=== PATIENT | male | born 1935 | race Caucasian/White ===

== ENCOUNTER → 2022-03-03 09:03 | Outpatient (CLI) | payer MEDICARE, BC, SELFPAY ==
--- NOTE | 2022-03-03 | DI.RAD.S_ITS ---
PROCEDURE: XR LUMBAR SPINE 2-3V INDICATIONS: Lumbago with sciatica, left side TECHNIQUE: 3 views of the lumbar spine were acquired. COMPARISON: None. FINDINGS: Bones: 5 [id number] vertebrae are present. There is 4 mm anterolisthesis of L3 on L4. Loss of disc height and degenerative endplate changes throughout lumbar spine is seen. No vertebral body compression fractures. No suspicious bony lesions. Soft tissues: Overlying bowel gas pattern is normal. No suspicious soft tissue calcifications. IMPRESSION: Degenerative disc disease throughout lumbar spine. Grade 1 anterolisthesis of L3 on L4. No acute compression fracture. Dictated by: Jamarcus Hickey M.D. on 03/03/2022 at 10:10 Approved by: Jamarcus Hickey M.D. on 03/03/2022 at 10:11
== END ==
PROVIDERS: PCP Family Medicine; Referring Provider Family Medicine; Visit Provider Family Medicine
DX: M51.16 Intervertebral disc disorders with radiculopathy, lumbar region (principal); M43.16 Spondylolisthesis, lumbar region
CPT/HCPCS: 72100

== ENCOUNTER 2024-09-05 19:43 | Emergency (ER) | payer MEDICARE, BC, SELFPAY ==
[2024-09-05 20:03] VITALS: BP 136/67; PULSE 83; RESP 16; TEMP 36.4; O2SAT 95; BMI 24.7
--- NOTE | 2024-09-05 21:23 | DI.CT.S_ITS ---
PROCEDURE: CT HEAD/BRAIN WO CON INDICATIONS: fall, hit head, no thinners TECHNIQUE: Noncontrast 4.5 mm thick angled axial sections acquired from the foramen magnum to the vertex, with coronal and sagittal reformats. For radiation dose reduction, the following was used: automated exposure control, adjustment of mA and/or kV according to patient size. COMPARISON: None. FINDINGS: Image quality: Diagnostic. CSF spaces: Basal cisterns are patent. No extra-axial fluid collections. The ventricles are symmetric in size and shape. Brain: No intracranial bleeds or masses. There is cerebral volume loss for age, with resultant ventricular and sulcal prominence. There are periventricular and deep white matter chronic small vessel ischemic changes. There is intracranial internal carotid artery atherosclerosis. Skull and face: Calvarium and visualized facial bones appear intact, without suspicious lesions. Sinuses: Visualized sinuses and mastoids are clear. IMPRESSION: No acute intracranial pathology. Approved by: Edyta Chung M.D.,Ph.D. on 09/06/2024 at 0:19
--- NOTE | 2024-09-05 21:23 | DI.CT.S_ITS ---
PROCEDURE: CT CERVICAL SPINE WO CON INDICATIONS: fall, hit head, no thinners TECHNIQUE: Noncontrast 3 mm thick sections acquired from the skull base to the T4 level. Sagittal and coronal reformats were then constructed. For radiation dose reduction, the following was used: automated exposure control, adjustment of mA and/or kV according to patient size. COMPARISON: None. FINDINGS: Image quality: Diagnostic Bones: No acute fractures or dislocations. Visualized superior ribs are intact. Straightening of the normal cervical lordosis. Multilevel degenerative changes. Soft tissues: Prevertebral soft tissues are normal in thickness. No paravertebral hematomas. No apical pneumothoraces. IMPRESSION: No acute displaced fracture or traumatic subluxation. Approved by: Edyta Chung M.D.,Ph.D. on 09/06/2024 at 0:16
--- NOTE | 2024-09-06 01:04 | ED.HEATRA ---
HPI - Head Injury General Chief complaint: Head Injury Stated complaint: head injury Time Seen by Provider: 09/06/24 00:39 Source: patient Mode of arrival: Ambulatory History of Present Illness HPI Narrative: 89-year-old male history of hypothyroidism, dyslipidemia, BPH does take an aspirin daily presents with complaint of mechanical fall. Patient was doing a puzzle sat backwards and missed the chair fell backwards hitting his head on the corner of the wall of the top of his head. States no loss of consciousness, denies any neck pain. Denies any other injuries. No chest pain or shortness of breath. No nausea or vomiting. No dizziness. Has not had any numbness tingling weakness or other issues. Does have a laceration on his scalp. He is unsure of his tetanus status but sees Dr. Luna here locally at the hospital. 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 Related Data Home Medications Medication Instructions Recorded Confirmed ascorbic acid (vitamin C) 500 mg mg PO 11/01/20 11/05/20 capsule aspirin 325 mg tablet 325 mg PO DAILY 11/01/20 11/05/20 carboxymethylcellulose sodium 0.5 drp ophthalmic (eye) 11/01/20 11/05/20 % eye drops (Refresh Tears) cholecalciferol (vitamin D3) 50 50 mcg PO DAILY 11/01/20 11/05/20 mcg (2,000 unit) capsule coenzyme Q10 300 mg capsule 300 mg PO DAILY 11/01/20 11/05/20 glucosamine-chondroitin 750 mg-600 tab PO 11/01/20 11/05/20 mg tablet levothyroxine 50 mcg tablet 50 mcg PO DAILY 11/01/20 11/05/20 (Synthroid) multivitamin 1 tab PO DAILY 11/01/20 11/05/20 omega-3 fatty acids 1,000 mg 1,000 mg PO DAILY 11/01/20 11/05/20 capsule (Fish Oil Concentrate) pravastatin 40 mg tablet 40 mg PO DAILY 11/01/20 11/05/20 tamsulosin 0.4 mg capsule 0.8 mg PO DAILY 11/01/20 11/05/20 Previous Rx's Medication Instructions Recorded finasteride 5 mg tablet See Rx Instructions .Route 11/14/21 .COMPLEX #90 tabs Allergies Allergy/AdvReac Type Severity Reaction Status Date / Time pistachio nut Allergy Verified 09/05/24 20:03 Review of Systems Review of Systems ROS Unobtainable: All systems reviewed & are unremarkable except as noted in HPI and below Patient History Medical History BPH w urinary obs/LUTS Hx of migraines Surgical History History of vasectomy History of hernia repair History of back surgery Family History Father Hypertension Mother Migraines Social History marital status: number of children: 2 occupational status: previously employed Smoking Status: Never smoker alcohol intake: current caffeine: Yes Smoking Status: Never smoker Exam Narrative Exam Narrative: GEN: Patient appears in mild distress. HEAD: Patient has a curvilinear laceration of the left parietal scalp proximally 5 cm in length, no raccoon/Becker sign. NECK: Nontender, painless range of motion, trachea midline [Negative/positive] Nexus criteria, no midline line tenderness, distracting injury, altered mental status, neuro deficit, recent EtOH. EYES: PERRLA, EOMI ENT: External inspection normal, trachea is midline, TM's are normal no hemotypanum, Nares are clear, no septal hematoma, no dental or oral injury, airway is normal and with normal occlusion, No bony tenderness RESP: Chest is nontender and has symmetric movement, no ecchymosis, breath sounds are normal no crackles, wheezes or rales CVS: Heart sounds are normal, no murmur noted, No JVD. ABG/GI: Nontender, soft, normal bowel sounds, no distention, no organomegaly NEURO: Oriented AOx3, neuro is grossly intact, sensation and motor is normal all 4 extremities moving, cranial nerves II through XII are intact, GCS is 15 PSYCH: Normal mood and affect SKIN: Intact, warm and dry, no crepitus and without decubitus BACK: No CVA tenderness, no vertebral tenderness, no step-off's, no crepitus EXT: Atraumatic, hips are nontender, no pedal edema, normal color and temperature, normal range of motion of extremities with normal tendon exam, 2+ pulses in all four extremities Initial Vital Signs Initial Vital Signs: Vital Signs Temperature 97.5 F L 09/05/24 20:03 Pulse Rate 83 09/05/24 20:03 Respiratory Rate 16 09/05/24 20:03 Blood Pressure 136/67 09/05/24 20:03 Pulse Oximetry 95 09/05/24 20:03 Oxygen Delivery Method Room Air 09/05/24 20:03 Procedures Laceration Repair Laceration 1: Site: scalp Side (If applicable): left Size (cm): 5 Description: linear (Curvilinear) and flap Depth: simple, single layer Local Anesthetic: lidocaine 2% Amount of anesthesia used (mL): 6 Pre-repair: wound explored, irrigated extensively and deep structures intact Skin layer closed with: waqas (#8) Course Orders Ordered: Discontinued Medications Diphtheria/Tetanus/Acell Pertussis (Tet,Diph,Pertuss(Acell),Vac/Pf 0.5 Ml Syringe) 0.5 ml IM .ONCE ONE Stop: 09/05/24 21:27 Last Admin: 09/06/24 01:48 Dose: 0.5 ml Documented By: ROLA Lidocaine HCl (Lidocaine 2% Inj Sdv 5ml) 10 ml INJ NOW ONE Stop: 09/06/24 01:16 Last Admin: 09/06/24 01:49 Dose: 10 ml Documented By: ROLA Vital Signs Vital signs: Vital Signs - 8 hr 09/06/24 02:02 Pulse Rate 65 Respiratory Rate 20 Blood Pressure 165/86 H Pulse Oximetry 96 Oxygen Delivery Method Room Air MDM - Head Injury MDM Narrative Medical decision making narrative: 89-year-old male with complaint of fall with head laceration reports mechanical ground level fall no loss of consciousness no anticoagulation but patient is 89 years old. Has a 5 cm laceration. Tetanus was updated. Head CT shows cerebral volume loss for age with the results ventricular and sulcal prominence periventricular and deep white matter chronic small vessel ischemic changes there was intracranial internal carotid artery atherosclerosis. No acute intracranial pathology. Cervical spine CT shows no acute displaced fracture or traumatic subluxation straightening of normal cervical lordosis multilevel degenerative changes. Discussed with patient sutures versus waqas patient is okay with waqas we will numb with lidocaine. Patient had staple repair with 8. Waqas. Patient tolerated well discussed return precautions. All questions answered. Discharge Plan Departure Patient Disposition: Home Clinical Impression: Laceration of scalp, Fall Instructions: DI for Laceration Repair -- [place], Closed Head Injury Activity Restrictions/Additional Instructions: Follow up in 7-10 days with primary care, urgent care of the emergency department for removal of your waqas. I would recommend calling your primary care physician to set up appointment for removal. You can take acetaminophen up to a 1000 mg every 6 hours as needed for headaches or pain. Wound Care: Keep wound(s) clean and dry. Wash daily with soap and water only. Do not use over the counter products (alcohol or peroxide)on the wounds unless instructed by a physician. If wound condition worsens (increased/expanding redness, developing fluid blisters, or worsening pain), either contact your doctor for an urgent re-assessment , or return to the Emergency Department. Return to the Emergency Department for any new or worsening symptoms. Return if fever greater than 100.4 Fahrenheit, increased swelling, increasing pain or worsening symptoms such as increased discharge or spreading redness. Please return for severe headaches, new neck or back pain, dizziness, lightheadedness or passing out, persistent vomiting, new chest pain or shortness of breath, numbness tingling or weakness changes to mentation or other new or concerning changes. Prescriptions: No Action pravastatin 40 mg tablet 40 mg PO DAILY levothyroxine [Synthroid] 50 mcg tablet 50 mcg PO DAILY tamsulosin 0.4 mg capsule 0.8 mg PO DAILY ascorbic acid (vitamin C) 500 mg capsule PO cholecalciferol (vitamin D3) 50 mcg (2,000 unit) capsule 50 mcg PO DAILY coenzyme Q10 300 mg capsule 300 mg PO DAILY multivitamin Tablet 1 tab PO DAILY omega-3 fatty acids [Fish Oil Concentrate] 1,000 mg capsule 1,000 mg PO DAILY glucosamine-chondroitin 750-600 mg tablet PO aspirin 325 mg tablet 325 mg PO DAILY Refresh Tears 0.5 % drops ophthalmic (eye) finasteride 5 mg tablet See Rx Instructions .ROUTE .COMPLEX Qty: 90 0RF Dose Instruction: TAKE ONE TABLET BY MOUTH ONE TIME DAILY Rx Instructions: TAKE ONE TABLET BY MOUTH ONE TIME DAILY Referrals: Stu Luna MD [Primary Care Provider] - Stand Alone Forms: Patient Portal/API/Survey
[2024-09-06] MEDS: TET,DIPH,PERTUSS(ACELL),VAC/PF 0.5 ML SYRINGE IM (01:48)
[2024-09-06] MEDS: LIDOCAINE 2% INJ SDV 5ML 10 ML INJ (01:49)
[2024-09-06 02:02] VITALS: BP 165/86; PULSE 65; RESP 20; O2SAT 96
== END 2024-09-06 02:03 | disposition home or self-care (01) ==
PROVIDERS: Emergency Provider Emergency Medicine; PCP Family Medicine
DX: S01.01XA Laceration without foreign body of scalp, initial encounter (principal); W18.30XA Fall on same level, unspecified, initial encounter; Z79.82 Long term (current) use of aspirin; Z23 Encounter for immunization
CPT/HCPCS: 12002; 70450; 72125; 90471; 99284; 90715